=== PATIENT | female | born 1960 | race Caucasian/White ===

== ENCOUNTER → 2020-07-22 | Outpatient (CLI) | payer OTHER ==
[~2020-07-22] MED LIST: ALPRAZOLAM0.5 MG PO; AMBIEN5 MG PO; ASPIRIN325 MG PO; CARDIZEM120 MG PO; CATAPRES 0.1MG0.1 MG PO; CRESTOR20 MG PO; ESTRADIOL1 EAC1 TD; EYE MULTIVITAM1 EACH PO; HYDROCHLOROTH12.5 MG PO; HYDROXYZINE HCL25 MG PO; IBU800 MG PO; KEFLEX500 MG PO; LORTAB 7.5-3251 EACH PO; LYRICA100 MG PO; NORCO 7.5-3251 EACH PO; OMEPRAZOLE20 M1 PO; VALSARTAN160 MG PO; VITAMIN C500 M4 PO; VITAMIN D21250 MCG PO; VITAMIN D31250 MCG PO
== END ==
LOC: KOH-I 09:07
DX: Z47.82 Encounter for orthopedic aftercare following scoliosis surgery (principal); Z98.890 Other specified postprocedural states
CPT/HCPCS: 73630

== ENCOUNTER → 2020-08-22 | Outpatient (CLI) | payer OTHER | LOC: KOH-I 08:57 | DX: Z47.89 Encounter for other orthopedic aftercare (principal); Z98.890 Other specified postprocedural states; M19.071 Primary osteoarthritis, right ankle and foot | CPT/HCPCS: 73630 ==

== ENCOUNTER → 2020-10-03 | Outpatient (CLI) | payer OTHER | LOC: KOH-I 09:08 | DX: Z47.89 Encounter for other orthopedic aftercare (principal); Z98.890 Other specified postprocedural states | CPT/HCPCS: 73630 ==

== ENCOUNTER → 2021-07-07 | Outpatient (CLI) | payer MEDICARE, OTHER ==
[~2021-07-07] MED LIST changes: +AMBIEN10 MG PO; -AMBIEN5 MG PO; +BUPROPION HCL75 MG PO; +CELECOXIB200 MG PO; +DICLOFENAC SODIUM; +FEBUXOSTAT40 MG PO; +HYDROCODON-ACE1 EAC6 PO; +LEXAPRO20 MG PO; -LORTAB 7.5-3251 EACH PO; +XIIDRA EYE
[2021-07-07 12:04] LABS: HEMOGLOBIN 12.8 gm/dl (12.3-15.3); RED BLOOD COUNT 4.06 M/UL (4.00-5.10); WHITE BLOOD COUNT 5.1 K/UL (4.5-11.0)
[2021-07-07 13:00] LABS: BUN/CREATININE RATIO 22 (0-10)
== END ==
LOC: OPSV2 11:00
PROVIDERS: Podiatrist Foot & Ankle Surgery
DX: Z01.818 Encounter for other preprocedural examination (principal); R94.31 Abnormal electrocardiogram [ECG] [EKG]
CPT/HCPCS: 36415; 80048; 84550; 85027; 93005

== ENCOUNTER → 2021-07-23 | Day surgery (SDC) | payer MEDICARE, OTHER ==
[~2021-07-23] VITALS: Ht 167.6 cm; Wt 71.2 kg
[~2021-07-23] MED LIST changes: -XIIDRA EYE; +XIIDRA EYE EYEBOTH
== END | disposition home or self-care (01) ==
LOC: OR 07-07 11:17
PROVIDERS: Podiatrist Foot & Ankle Surgery
PROC: 0LXV0ZZ Transfer Right Foot Tendon, Open Approach (ICD-10-PCS; principal; 2021-07-23 10:00)
PROC: 0HXMXZZ Transfer Right Foot Skin, External Approach (ICD-10-PCS; principal; 2021-07-23 10:00)
PROC: 0RQU0ZZ Repair Right Metacarpophalangeal Joint, Open Approach (ICD-10-PCS; principal; 2021-07-23 10:00)
PROC: 0SGP0JZ Fusion of Right Toe Phalangeal Joint with Synthetic Substitute, Open Approach (ICD-10-PCS; principal; 2021-07-23 10:00)
PROC: 0RB Upper Joints, Excision (ICD-10-PCS; principal; 2021-07-23 10:00)
DX: M20.41 Other hammer toe(s) (acquired), right foot (principal); M25.841 Other specified joint disorders, right hand; I10 Essential (primary) hypertension; R00.0 Tachycardia, unspecified; E78.5 Hyperlipidemia, unspecified; G47.30 Sleep apnea, unspecified; K21.9 Gastro-esophageal reflux disease without esophagitis; M19.90 Unspecified osteoarthritis, unspecified site; M10.9 Gout, unspecified; Z20.822 Contact with and (suspected) exposure to COVID-19; Z88.0 Allergy status to penicillin; Z88.5 Allergy status to narcotic agent; Z88.8 Allergy status to other drugs, medicaments and biological substances; Z86.73 Personal history of transient ischemic attack (TIA), and cerebral infarction without residual deficits
CPT/HCPCS: 73630; 76000; J1100; J1885; J2001; J2405; J2704; J2795; J3010; J3370; J7120; U0002

== ENCOUNTER → 2021-07-31 | Outpatient (CLI) | payer MEDICARE, OTHER | LOC: KOH-I 10:15 | DX: M79.671 Pain in right foot (principal); Z96.698 Presence of other orthopedic joint implants | CPT/HCPCS: 73630 ==

== ENCOUNTER → 2021-08-14 | Outpatient (CLI) | payer MEDICARE, OTHER | LOC: KOH-I 09:35 | DX: M79.671 Pain in right foot (principal); S92.351D Displaced fracture of fifth metatarsal bone, right foot, subsequent encounter for fracture with routine healing; Z96.698 Presence of other orthopedic joint implants | CPT/HCPCS: 73630 ==

== ENCOUNTER → 2021-09-02 | Outpatient (CLI) | payer MEDICARE, OTHER | LOC: KOH-I 12:05 | DX: M79.671 Pain in right foot (principal); Z96.698 Presence of other orthopedic joint implants; R93.7 Abnormal findings on diagnostic imaging of other parts of musculoskeletal system | CPT/HCPCS: 73630 ==

== ENCOUNTER → 2021-09-16 | Outpatient (CLI) | payer MEDICARE, OTHER | LOC: KOH-I 10:00 | DX: M79.671 Pain in right foot (principal); S93.124A Dislocation of metatarsophalangeal joint of right lesser toe(s), initial encounter; Z98.890 Other specified postprocedural states | CPT/HCPCS: 73630 ==

== ENCOUNTER → 2021-10-02 | Outpatient (CLI) | payer MEDICARE, OTHER | LOC: KOH-I 09:11 | DX: M79.671 Pain in right foot (principal); S63.266D Dislocation of metacarpophalangeal joint of right little finger, subsequent encounter | CPT/HCPCS: 73630 ==